=== PATIENT | male | born 1990 | race Caucasian/White ===

== ENCOUNTER → 2017-01-03 | Day surgery (SDC) | payer OTHER ==
[~2017-01-03] VITALS: Ht 177.8 cm; Wt 105.9 kg
[~2017-01-03] MED LIST: FENTANYL CITRATE INJ 50 MCG/1 ML 2 ML VIAL ONE; FLUT0.15; LANS30CA12 PO; LORA10CA10 PO; MIDAZOLAM HCL 5 MG/ML 1 ML VIAL ONE; PSEU30TA20 PO; SODIUM CHLORIDE 0.9% 500ML 500 ML IV ONE
[2017-01-03 11:29] VITALS: Ht 177.8 cm; Wt 105.9 kg
--- NOTE | 2017-01-03 11:40 | Endo History and Physical ---
History & Physical Date of Service: January 03, 2017. Chief Complaint: GERD and Nausea Referring Physician: Dr. Everett History of Present Illness 26 yo CM who presents for EGD secondary to GERD and Nausea. Past Surgical History Hx Cardiac Surgery: No Hx Internal Defibrillator: No Hx Pacemaker: No Hx Abdominal Surgery: No Hx of Implantable Prosthesis: No Hx Post-Op Nausea and Vomiting: No Hx Cancer Surgery: No Hx Thoracic Surgery: No Hx Orthopedic: No Hx Urinary Tract Surgery: No Family History None Social History Smoking Status: Never Smoker Hx Substance Use: No Hx Alcohol Use: Yes (socially,rare) Allergies Coded Allergies: No Known Allergies (Verified , 01/03/17) Current Medications Reported Home Medications Medications Dose Route/Sig Max Daily Dose Days Date Category Sudafed (Pseudoephedrine HCl) 30 Mg Tab 30 Mg PO Q4 01/03/17 Reported Flonase Allergy Relief (Fluticasone Propionate (Nasal)) 50 Mcg/Act Spr 1 [place] NA DAILY 01/03/17 Reported Prevacid (Lansoprazole) 30 Mg Capcr 30 Mg PO DAILY 01/03/17 Reported Loratadine 10 Mg Cap 10 Mg PO DAILY 01/03/17 Reported Vital Signs Weight (Kilograms): 105.91 Height (Feet): 5 Height (Inches): 10 Physical Exam General Appearance: WD/WN, no apparent distress Respiratory/Chest: Auscultation: breath sounds normal Cardiovascular: Heart Auscultation: RRR Abdomen: Bowel Sounds: normal Inspection & Palpation: soft, non-distended, no tenderness, guarding & rebound Assessment and Plan Assessment: 26 yo CM who presents for EGD secondary to GERD and Nausea. Plan: Proceed with EGD.
[2017-01-03 11:41] VITALS: TEMP 37
--- NOTE | 2017-01-03 12:26 | Discharge Instructions ---
Endoscopy Patient Instructions Date / Procedure(s) Performed January 03, 2017. EGD Allergy Information Coded Allergies: No Known Allergies (Verified , 01/03/17) Discharge Date / Findings January 03, 2017. Gastric antrum biopsies Medication Instructions OK to resume all medications today as prescribed Reported Home Medications Medications Dose Route/Sig Max Daily Dose Days Date Category Sudafed (Pseudoephedrine HCl) 30 Mg Tab 30 Mg PO Q4 01/03/17 Reported Flonase Allergy Relief (Fluticasone Propionate (Nasal)) 50 Mcg/Act Spr 1 [place] NA DAILY 01/03/17 Reported Prevacid (Lansoprazole) 30 Mg Capcr 30 Mg PO DAILY 01/03/17 Reported Loratadine 10 Mg Cap 10 Mg PO DAILY 01/03/17 Reported Provider Instructions Activity Restrictions - No exercising or heavy lifting for 24 hours. - Do not drink alcohol the day of the procedure. - Do not drive a car or operate machinery until the day after the procedure. - Do not make any important decisions or sign important papers in 24 hours after the procedure. Following Day: - Return to full activity which may include returning to work/school. Diet Start your diet with liquids and light foods (jello, soup, juice, toast). Then eat your usual diet if not nauseated. Treatment For Common After Affects For mild abdominal pain, bloating, or excessive gas: - Rest - Eat lightly - Lie on right side Follow-Up Information Follow-up with Dr. Guero Everett as scheduled Anesthesia Information What You Should Know You have had a procedure that required some medicine to reduce anxiety and discomfort. This treatment is called moderate sedation. After receiving the treatment, you may be sleepy, but you will be able to breathe on your own. The effects of the treatment may last for several hours. Follow these instructions along with Activity/Diet recommendations noted above: * Do NOT do anything where dizziness or clumsiness would be dangerous. * Rest quietly at home today, then you can be up and about tomorrow. * Have a responsible person stay with you the rest of today. * You may have had an I.V. today. If so, you may take the dressing off later today. Recommendations Call your doctor if: * Trouble breathing * Continuous vomiting for more than 24 hours * Temperature above 101 degrees * Severe abdominal pain or bloating * Pain not relieved by pain medicine ordered * There is increased drainage or redness from any incision * A large amount of rectal bleeding greater than 2-3 tablespoons. (If you had a polyp/s removed or have hemorrhoids, a small amount of blood - from the rectum is to be expected.) * You have any unanswered questions or concerns. IN THE EVENT OF A SERIOUS EMERGENCY, GO TO THE NEAREST EMERGENCY ROOM Your discharge instructions were prepared by provider Esteban Anderson. Patient Instructions Signature Page Buzz Tang Patient (or Guardian) Signature/Date: I have read and understand the instructions given to me by my caregivers. Caregiver/RN/Doctor Signature/Date: The above-named patient and/or guardian has received patient instructions on this date. + Original Patient Signature Page (only) stays with chart. Please make copy for patient.
--- NOTE | 2017-01-03 12:35 | GI REPORT ---
Procedure Date: 01/03/2017 11:41 AM THIS REPORT HAS BEEN AMENDED Addendum Number: 1 Addendum Date: 01/03/2017 12:34:36 PM For sedation, patient did not receive MAC. He received Versed 4mg IV and Fentantyl 100 micrograms IV in divided doses. Procedure: Upper GI endoscopy Indications: Epigastric abdominal pain, Suspected esophageal reflux Medicines: Monitored Anesthesia Care Complications: No immediate complications. Estimated Blood Loss: Estimated blood loss: none. Procedure: Pre-Anesthesia Assessment: - Prior to the procedure, a History and Physical was performed, and patient medications and allergies were reviewed. The patient's tolerance of previous anesthesia was also reviewed. The risks and benefits of the procedure and the sedation options and risks were discussed with the patient. All questions were answered, and informed consent was obtained. Prior Anticoagulants: The patient has taken no previous anticoagulant or antiplatelet agents. ASA Grade Assessment: II - A patient with mild systemic disease. After reviewing the risks and benefits, the patient was deemed in satisfactory condition to undergo the procedure. After obtaining informed consent, the endoscope was passed under direct vision. Throughout the procedure, the patient's blood pressure, pulse, and oxygen saturations were monitored continuously. The scope was introduced through the mouth, and advanced to the second part of duodenum. The upper GI endoscopy was accomplished without difficulty. The patient tolerated the procedure well. Findings: The esophagus was normal. The entire examined stomach was normal. Biopsies were taken with a cold forceps for Helicobacter pylori testing. The examined duodenum was normal. Impression: - Normal esophagus. - Normal stomach. Biopsied. - Normal examined duodenum. Recommendation: - Resume previous diet. - Continue present medications. - Await pathology results. - Return to primary care physician as previously scheduled. Esteban Anderson DO 01/03/2017 12:34:25 PM This report has been signed electronically. Note Initiated On: 01/03/2017 11:41 AM I attest to the content of the Intraoperative Record and orders documented therein, exceptions below Esteban Gregg DO Justin 01/03/2017 12:35:52 PM This report has been signed electronically.
[2017-01-03 13:00] VITALS: BP 111/81; PULSE 72; O2SAT 96
== END | disposition home or self-care (01) ==
LOC: C.GI 11:11
PROVIDERS: ATTEND Internal Medicine
DX: K29.50 Unspecified chronic gastritis without bleeding (principal); K21.9 Gastro-esophageal reflux disease without esophagitis